=== PATIENT | female | born 1985 | race Caucasian/White ===

== ENCOUNTER 2023-10-24 12:14 | Observation (INO) | payer OTHER ==
[2023-10-24 14:23] LABS: BASO % 0.5 % (0-2.0); EOS % 0.3 % (0-4.5); HEMATOCRIT 34.2 % (32.4-45.2); HEMOGLOBIN 11.5 GM/dL (10.7-15.3); MCHC 33.7 g/dl (32.0-36.0); MEAN PLT VOLUME 7.9 fl (7.5-11.1); MONO % 4.8 % (3.8-10.2); NEUT % 82.4 % (42.8-82.8); PLATELET COUNT 264 10^3/uL (134-434); RBC 3.84 M/mm3 (3.60-5.2); RDW 14.7 % (11.6-15.6); WHITE BLOOD COUNT 8.3 K/mm3 (4.0-10.0)
[2023-10-24 14:29] LABS: INR 0.96 (0.83-1.09); PROTHROMBIN TIME (PATIENT) 11.1 SEC (9.7-13.0)
[2023-10-24 14:32] LABS: ACTIVATED PTT 27.8 SECONDS (25.2-36.5)
[2023-10-24 14:50] LABS: POTASSIUM 4.4 mmol/L (3.5-5.1)
[2023-10-24 14:52] LABS: ALBUMIN 3.5 g/dl (3.4-5.0); BLOOD UREA NITROGEN 7.1 mg/dL (7-18)
[2023-10-24 14:55] LABS: CREATININE 0.8 mg/dL (0.55-1.3)
[2023-10-24 14:57] LABS: BILIRUBIN,TOTAL 0.4 mg/dL (0.2-1); TOT PROT 7.2 g/dl (6.4-8.2)
[2023-10-24] MEDS: LACTATED RINGERS SOLUTION 1000 ML INFUS.BAG IV ONE (16:13)
[2023-10-24] MEDS: ACETAMINOPHEN 1000 MG/100 ML BAG IVPB ONE (16:13)
[2023-10-24] MEDS ORDERED: PIPERACILLIN/TAZOB 4.5 GM 4.5 GM/100 ML BAG IVPB ONE (17:20)
[2023-10-24] MEDS: PIPERACILLIN/TAZOB 4.5 GM 4.5 GM in DEXTROSE 5%-WATER 100 ML IVPB ONE (17:29)
[2023-10-24] MEDS ORDERED: ACETAMINOPHEN 500 MG TABLET (FP) PO PRN (21:54)
[2023-10-25] MEDS: VANCOMYCIN/WATER FOR INJ (PEG) 1,000 MG/200 ML BAG IVPB SCH ×2 (00:43→13:02)
[2023-10-25 01:47] VITALS: BMI 23.5
[2023-10-25] MEDS ORDERED: PIPERACILLIN/TAZOB 4.5 GM 4.5 GM in DEXTROSE 5%-WATER 100 ML IVPB SCH (02:00)
[2023-10-25] MEDS: PIPERACILLIN/TAZOB 4.5 GM 4.5 GM in DEXTROSE 5%-WATER 100 ML IVPB SCH (02:45)
[2023-10-25 09:01] LABS: HEMATOCRIT 30.5 % (32.4-45.2); HEMOGLOBIN 10.6 GM/dL (10.7-15.3); MCH 30.4 pg (25.7-33.7); MCHC 34.7 g/dl (32.0-36.0); MEAN CELL VOLUME 87.7 fl (80-96); MEAN PLT VOLUME 7.9 fl (7.5-11.1); PLATELET COUNT 261 10^3/uL (134-434); RBC 3.48 M/mm3 (3.60-5.2); RDW 14.4 % (11.6-15.6); WHITE BLOOD COUNT 7.4 K/mm3 (4.0-10.0)
[2023-10-25 09:05] LABS: CALCIUM 9.2 mg/dL (8.5-10.1)
[2023-10-25 09:06] LABS: ALBUMIN 3.3 g/dl (3.4-5.0); BLOOD UREA NITROGEN 9.8 mg/dL (7-18); MAGNESIUM 2.1 mg/dL (1.8-2.4)
[2023-10-25 09:09] LABS: CREATININE 0.8 mg/dL (0.55-1.3); PHOSPHOROUS 3.2 mg/dL (2.5-4.9)
[2023-10-25 09:10] LABS: BILIRUBIN,TOTAL 0.8 mg/dL (0.2-1); TOT PROT 6.8 g/dl (6.4-8.2)
[2023-10-25] MEDS: PANTOPRAZOLE 40 MG TABLET PO SCH (09:12)
[2023-10-25 09:13] LABS: PH,URINE 5.5 (5.0-8.0); URINE APPEARANCE CLEAR; URINE BILIRUBIN NEGATIVE (NEGATIVE); URINE COLOR YELLOW; URINE GLUCOSE (UA) NEGATIVE (NEGATIVE); URINE KETONE TRACE (NEGATIVE); URINE LEUK ESTERASE NEGATIVE (NEGATIVE); URINE NITRITE NEGATIVE (NEGATIVE); URINE PROTEIN TRACE (NEGATIVE); URINE UROBILINOGEN 0.2 mg/dL (0.2-1.0)
[2023-10-25 09:14] LABS: EPI CELLS 29.8 /uL (0-25.1); URINE BACTERIA 433.2 /uL (0-1359); URINE RBC 2.7 /uL (0-23.9); URINE WBC 22.3 /uL (0-25.8)
[2023-10-25] MEDS: PANTOPRAZOLE SODIUM 40 MG VIAL IVPUSH SCH (09:21)
[2023-10-25] MEDS ORDERED: ENOXAPARIN NA (PORCINE) 40 MG/0.4 ML DISP.SYRIN SQ SCH (10:00)
[2023-10-25] MEDS ORDERED: MAG HYDROX/AL HYDROX/SIMETH 30 ML UNIT-DOSE CUP PO PRN ×2 (11:52→16:35)
[2023-10-25] MEDS: FAMOTIDINE 20 MG/50 ML IVPB 20 MG/50 ML MG IVPB ONE (12:28)
[2023-10-25] MEDS ORDERED: FENTANYL CITRATE/PF 50 MCG/ML VIAL ONE ×4 (13:23→16:42)
[2023-10-25] MEDS ORDERED: LIDOCAINE HCL/PF 2% SDV 5ML VIAL ONE (13:23)
[2023-10-25] MEDS ORDERED: PROPOFOL 20 ML ONE ×2 (13:23→15:15)
[2023-10-25] MEDS ORDERED: MIDAZOLAM HCL 2 MG/2 ML SINGLE DOSE VIAL ONE (13:23)
[2023-10-25] MEDS ORDERED: ceFAZolin SODIUM 1 GM VIAL ONE (14:02)
[2023-10-25] MEDS ORDERED: GENTAMICIN SO4 80 MG/2 ML VIAL ONE (14:02)
[2023-10-25] MEDS ORDERED: LACTATED RINGERS SOLUTION 1,000 ML IV SCH (15:00)
[2023-10-25] MEDS ORDERED: BACITRACIN ZINC 15 GM TUBE TOPICAL OINTMENT ONE (15:11)
[2023-10-25] MEDS ORDERED: ONDANSETRON 4 MG/2 ML VIAL ONE ×2 (15:25→16:06)
[2023-10-25] MEDS ORDERED: DEXAMETHASONE SOD PHOSPHATE 4 MG/1 ML VIAL ONE (15:25)
[2023-10-25] MEDS ORDERED: ACETAMINOPHEN INJECTION 100 ML IVPB ONE (16:01)
[2023-10-25] MEDS: ACETAMINOPHEN INJECTION 100 ML IVPB ONE (16:02)
[2023-10-25] MEDS: ACETAMINOPHEN 1000 MG/100 ML BAG IVPB ONE ×2 (16:02→17:55)
[2023-10-25] MEDS: ONDANSETRON 4 MG/2 ML VIAL IVPUSH PRN (16:06)
[2023-10-25] MEDS ORDERED: PROMETHAZINE HCL 25 MG/1 ML VIAL ONE (16:28)
[2023-10-25] MEDS: PROMETHAZINE HCL 25 MG/1 ML VIAL IVPB PRN (16:30)
[2023-10-25] MEDS ORDERED: DOCUSATE SODIUM 100 MG CAPSULE (FP) PO PRN (16:34)
[2023-10-25] MEDS ORDERED: morphine CARPU-JECT 2 MG/1 ML DISP.SYRIN IVPUSH PRN (16:34)
[2023-10-25] MEDS ORDERED: LACTATED RINGERS SOLUTION 1,000 ML/1,000 ML INFUS.BAG IV SCH (16:35)
[2023-10-25] MEDS ORDERED: ONDANSETRON 4 MG/2 ML VIAL IVPB PRN (16:40)
[2023-10-25] MEDS: SODIUM CHLORIDE 0.45% 1,000 ML IV SCH (17:25)
[2023-10-25] MEDS ORDERED: PIPERACILLIN/TAZOB 3.375 GM 3.375 GM in DEXTROSE 5%-WATER - 50 ML IVPB SCH (18:00)
[2023-10-25] MEDS: PIPERACILLIN/TAZOB 3.375 GM 3.375 GM in DEXTROSE 5%-WATER - 50 ML IVPB SCH (18:20)
[2023-10-25] MEDS: ACETAMINOPHEN 500 MG TABLET (FP) PO PRN (21:56)
[2023-10-26] MEDS ORDERED: VANCOMYCIN/WATER FOR INJ (PEG) 1,000 MG/200 ML BAG IVPB SCH
[2023-10-26] MEDS: VANCOMYCIN/WATER FOR INJ (PEG) 1,000 MG/200 ML BAG IVPB SCH (00:12)
[2023-10-26 08:51] LABS: BASO % 0.3 % (0-2.0); EOS % 0.1 % (0-4.5); HEMATOCRIT 30.5 % (32.4-45.2); HEMOGLOBIN 10.4 GM/dL (10.7-15.3); LYMPH % 12.8 % (8-40); MCH 30.4 pg (25.7-33.7); MCHC 34.2 g/dl (32.0-36.0); MEAN CELL VOLUME 88.9 fl (80-96); MEAN PLT VOLUME 7.7 fl (7.5-11.1); MONO % 7.6 % (3.8-10.2); NEUT % 79.2 % (42.8-82.8); PLATELET COUNT 277 10^3/uL (134-434); RBC 3.43 M/mm3 (3.60-5.2); RDW 14.1 % (11.6-15.6); WHITE BLOOD COUNT 8.6 K/mm3 (4.0-10.0)
[2023-10-26 09:11] LABS: CALCIUM 8.6 mg/dL (8.5-10.1)
[2023-10-26 09:12] LABS: BLOOD UREA NITROGEN 11.6 mg/dL (7-18)
[2023-10-26] MEDS: PANTOPRAZOLE SODIUM 40 MG VIAL IVPUSH SCH (09:12)
[2023-10-26 09:15] LABS: CREATININE 0.9 mg/dL (0.55-1.3)
[2023-10-26] MEDS: oxyCODONE HCL 5 MG TABLET PO PRN (21:38)
[2023-10-27 08:57] LABS: BASO % 0.4 % (0-2.0); HEMATOCRIT 30.6 % (32.4-45.2); HEMOGLOBIN 10.2 GM/dL (10.7-15.3); LYMPH % 20.6 % (8-40); MCH 30.3 pg (25.7-33.7); MCHC 33.4 g/dl (32.0-36.0); MEAN CELL VOLUME 90.7 fl (80-96); MEAN PLT VOLUME 7.8 fl (7.5-11.1); MONO % 6.4 % (3.8-10.2); NEUT % 71.6 % (42.8-82.8); PLATELET COUNT 267 10^3/uL (134-434); RBC 3.37 M/mm3 (3.60-5.2); RDW 14.2 % (11.6-15.6); WHITE BLOOD COUNT 8.2 K/mm3 (4.0-10.0)
[2023-10-27 09:00] LABS: POTASSIUM 4.1 mmol/L (3.5-5.1)
[2023-10-27 09:03] LABS: CALCIUM 8.6 mg/dL (8.5-10.1)
[2023-10-27 09:04] LABS: BLOOD UREA NITROGEN 13.9 mg/dL (7-18)
[2023-10-27 09:07] LABS: CREATININE 0.9 mg/dL (0.55-1.3)
[2023-10-27 13:36] VITALS: RESP 20
[2023-10-27] MEDS: AMOX TR/POT CLAV 875MG/125MG TABLETS (FP) PO SCH (17:26)
[2023-10-27] MEDS ORDERED: CEPHALEXIN MONOHYDRATE 500 MG CAPSULE (UD) PO SCH (18:00)
[2023-10-27 18:32] VITALS: BP 105/70; PULSE 84; TEMP 98.6
[2023-10-28] MEDS ORDERED: PANTOPRAZOLE 40 MG TABLET PO SCH (10:00)
== END 2023-10-27 19:58 | disposition home or self-care (01) ==
LOC: JER 12:14 → JERBED 17:53 → J7W 23:38
PROVIDERS: ADMIT Internal Medicine; ATTEND Nurse Practitioner
PROC: 3E033NZ Introduction of Analgesics, Hypnotics, Sedatives into Peripheral Vein, Percutaneous Approach (ICD-10-PCS; principal; 2023-10-24)
PROC: 3E0337Z Introduction of Electrolytic and Water Balance Substance into Peripheral Vein, Percutaneous Approach (ICD-10-PCS; 2023-10-24)
PROC: 3E033GC Introduction of Other Therapeutic Substance into Peripheral Vein, Percutaneous Approach (ICD-10-PCS; 2023-10-24)
PROC: 3E03329 Introduction of Other Anti-infective into Peripheral Vein, Percutaneous Approach (ICD-10-PCS; 2023-10-24)
PROC: 0HNU0ZZ Release Left Breast, Open Approach (ICD-10-PCS; 2023-10-24)
PROC: 0HBT0ZZ Excision of Right Breast, Open Approach (ICD-10-PCS; 2023-10-24)
DX: L76.34 Postprocedural seroma of skin and subcutaneous tissue following other procedure (principal); Z98.82 Breast implant status; K21.9 Gastro-esophageal reflux disease without esophagitis
CPT/HCPCS: 36415; 71260-TC; 80048; 80053; 81003; 83605; 83735; 84100; 84703; 85025; 85027; 85610; 85730; 86850; 86900; 86901; 87040; 87070; 87102; 87116; 87205; 87206; 87210; 93005; 93010; 94760; 96361; 96365; 96366; 96367; 96368; 96375; 96376; 99285-25; G0378; G0480; J0131; Q9967